=== PATIENT | male | born 1960 | race Two or more races ===

== ENCOUNTER 2021-02-28 11:13 | Day surgery (SDC) | payer MEDICARE ==
[2021-02-27 13:05] LABS: BASOPHILS % (AUTO) 1 % (0-1); EOSINOPHILS % (AUTO) 1 % (1-7); LYMPHOCYTES % (AUTO) 32 % (22-44); MEAN CORPUSCULAR HEMOGLOBIN 27.6 pg (27.5-34.5); MEAN CORPUSCULAR HGB CONC 34.3 g/dL (33.2-36.2); MEAN PLATELET VOLUME 7.4 fL (7.4-10.4); MONOCYTES % (AUTO) 6 % (2-9); NEUTROPHILS % (AUTO) 60 % (42-75); PLATELET COUNT 285 x10^3/uL (130-400); RED BLOOD COUNT 6.44 x10^6/uL (4.38-5.82); RED CELL DISTRIBUTION WIDTH 14.8 % (9.4-14.8)
[2021-02-27 13:16] LABS: ANION GAP 7 mmol/L (5-15); CALCIUM 9.3 mg/dL (8.5-10.1); CHLORIDE 108 mmol/L (98-107); CREATININE 1.12 mg/dL (0.7-1.3)
[~2021-02-28] VITALS: Ht 167.6 cm; Wt 80.4 kg
[~2021-02-28 11:13] MED LIST: AMLO-211 PO; ASPI81TA45 PO; EZET10TA70 PO; FENTANYL PF 250 MCG/5ML ONE; MIDAZOLAM 1 MG/ML, 2ML ONE; OPIUM/BELLADONNA SUPP.RECT 16.2-30 MG ONE; PRAV80TA2 PO; TAMS-11 PO
[2021-02-28] MEDS ORDERED: CHLORHEXIDINE 15 ML UDC ONE (11:18)
[2021-02-28 11:29] VITALS: BP 147/93
[2021-02-28] MEDS ORDERED: CHLORHEXIDINE 15 ML UDC PO ONE (12:00)
[2021-02-28] MEDS ORDERED: LACTATED RINGERS 1,000 ML IV SCH (12:00)
[2021-02-28] MEDS ORDERED: CEFAZOLIN 1,000 MG ONE (12:34)
[2021-02-28] MEDS ORDERED: ONDANSETRON 2MG/ML, 2ML ONE (12:34)
[2021-02-28] MEDS ORDERED: SUCCINYLCHOLINE 20 MG/ML, 10ML ONE (12:34)
[2021-02-28] MEDS ORDERED: GLYCOPYRROLATE 0.2MG/1ML, 5ML ONE (12:34)
[2021-02-28] MEDS ORDERED: DEXAMETHASONE 4 MG/ML, 1ML ONE (12:34)
[2021-02-28] MEDS ORDERED: PROPOFOL 10 MG/ML, 20ML ONE (12:34)
[2021-02-28] MEDS ORDERED: NEOSTIGMINE 1 MG/ML, 10ML ONE (12:34)
[2021-02-28] MEDS ORDERED: ROCURONIUM 10MG/ML,5ML ONE (12:34)
== END 2021-02-28 16:00 | disposition home or self-care (01) ==
LOC: OUT 11:13
PROVIDERS: ATTEND Urology
DX: N40.1 Benign prostatic hyperplasia with lower urinary tract symptoms (principal); I10 Essential (primary) hypertension; E78.5 Hyperlipidemia, unspecified; E66.9 Obesity, unspecified; Z86.73 Personal history of transient ischemic attack (TIA), and cerebral infarction without residual deficits; Z79.899 Other long term (current) drug therapy; Z85.72 Personal history of non-Hodgkin lymphomas; Z68.28 Body mass index [BMI] 28.0-28.9, adult; Z72.89 Other problems related to lifestyle; Z87.891 Personal history of nicotine dependence; Z20.822 Contact with and (suspected) exposure to COVID-19
CPT/HCPCS: 36415; 52450; 80048; 85025; 87086; 93005; J0330; J0690; J1100; J2250; J2405; J2704; J2710; J3010; J7120; U0003; U0005